=== PATIENT | male | born 1975 | race Caucasian/White ===

== ENCOUNTER 2018-10-13 05:59 | Emergency (ER) | payer OTHER ==
--- NOTE | 2018-10-13 06:10 | EDPHY ---
H & P Stated Complaint: lump on R testicle, pain in R hip/back Time Seen by Provider: 10/13/18 06:10 HPI/ROS: HPI CHIEF COMPLAINT: Right testicular pain, lump above testicle. HISTORY OF PRESENT ILLNESS: 42-year-old male, presents emergency room with discomfort x1 week around his right testicle, additionally last night around 10: 00 a.m. At night he palpated a lump above his testicle. This concerned him. He decided come the emergency room for evaluation. States he has had some testicular right-sided pain for the past week. 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 Patient denies any urinary symptoms, denies fever, denies dysuria. Past Medical History: Denies medical history Past Surgical History: Orchiectomy Right-sided. Social History: Denies drugs alcohol tobacco. Family History: Noncontributory ROS REVIEW OF SYSTEMS: 10 Systems were reviewed and negative with the exception of the elements mentioned in the history of present illness. Exam Constitutional triage nursing summary reviewed, vital signs reviewed, awake/ alert. Eyes normal conjunctivae and sclera, EOMI, PERRLA. HENT normal inspection, atraumatic, moist mucus membranes, no epistaxis, neck supple/ no meningismus, no raccoon eyes. Respiratory clear to auscultation bilaterally, normal breath sounds, no respiratory distress, no wheezing. Cardiovascular rate normal, regular rhythm, no murmur, no edema, distal pulses normal. Gastrointestinal soft, non-tender, no rebound, no guarding, normal bowel sounds, no distension, no pulsatile mass. Genitourinary exam: KAMRAN RN at Bedside: Circumcised male, Right Testicle Normal anatomy palpated, however above the testicule, palpation of the cord small mass palpated mild tender palpation of the epididymal cord. Left testicle absent. Script unremarkable. No lesions. No palpable mass along the testicle. Musculoskeletal no midline vertebral tenderness, full range of motion, no calf swelling, no tenderness of extremities, no meningismus, good pulses, neurovascularly intact. Skin pink, warm, & dry, no rash, skin atraumatic. Neurologic awake, alert and oriented x 3, AAOx3, moves all 4 extremities equally, motor intact, sensory intact, CN II-XII intact, normal cerebellar, normal vision, normal speech. Psychiatric normal mood/affect. Heme/Lymph/Immune no lymphadenopathy. Differential Diagnosis: Includes but is not limited to in a particular order: Spermatocele varicocele, epididymitis, orchitis, testicular torsion Medical Decision Making: Plan for this patient urinalysis, ultrasound. Re-evaluation: Urinalysis reviewed negative for acute infection. Ultrasound of the testicle called to me by Dr. Ruiz. This shows no evidence of torsion. Good blood flow to the right testicle. There is a small spermatocele 5 mm in the epididymal cord. No evidence of epididymitis or orchitis on the ultrasound. Recommend the patient follows up with Urology. Tylenol and/or Motrin for pain control. Return emergency room if there is worsening pain questions or concerns. Update on his ultrasound and UA. He is comfortable this reassured. Comfortable discharge plan. Source: Patient - Personal History Current Tetanus/Diphtheria Vaccine: Yes - Medical/Surgical History Hx Asthma: No Hx Chronic Respiratory Disease: No Hx Diabetes: No Hx Cardiac Disease: No Hx Renal Disease: No Hx Cirrhosis: No Hx Alcoholism: No Hx HIV/AIDS: No Hx Splenectomy or Spleen Trauma: No Other PMH: L testical removed, PTSD, TBI - Social History Smoking Status: Former smoker Constitutional: Initial Vital Signs Temperature (C) 36.8 C 10/13/18 06:01 Heart Rate 77 10/13/18 06:01 Respiratory Rate 18 10/13/18 06:01 Blood Pressure 171/109 H 10/13/18 06:01 O2 Sat (%) 96 10/13/18 06:01 O2 Delivery Mode Room Air Allergies/Adverse Reactions: No Known Allergies Allergy (Unverified 10/13/18 06:03) Home Medications: Medication Instructions Recorded NK [No Known Home Meds] 10/13/18 Medical Decision Making - Data Points Laboratory Results: 10/13/18 10/13/18 06:20 06:20 Urine Color PALE YELLOW Urine Appearance CLEAR Urine pH 6.0 (5.0-7.5) Ur Specific [place] 1.005 (1.002-1.030) Urine Protein NEGATIVE (NEGATIVE) Urine Ketones NEGATIVE (NEGATIVE) Urine Blood NEGATIVE (NEGATIVE) Urine Nitrate NEGATIVE (NEGATIVE) Urine Bilirubin NEGATIVE (NEGATIVE) Urine Urobilinogen NEGATIVE EU EU (0.2-1.0) Ur Leukocyte Esterase NEGATIVE (NEGATIVE) Urine Glucose NEGATIVE (NEGATIVE) N.gonorrhoeae RNA (TMA) Pending Departure - Departure Disposition: Home, Routine, Self-Care Clinical Impression: Testicular pain, Spermatocele Condition: Good Instructions: Testicle Pain (ED), Spermatocele (ED) Additional Instructions: 1. Follow up with Urology 2. Return emergency room if you have worsening symptoms questions or concerns. Referrals: NONE *PRIMARY CARE P,. [Primary Care Provider] - As per Instructions Renato Leavitt MD [Medical Doctor] - As per Instructions
[2018-10-13 07:17] VITALS: BP 148/76
== END 2018-10-13 07:17 | disposition home or self-care (01) ==
DX: N50.811 Right testicular pain (principal); N43.40 Spermatocele of epididymis, unspecified